=== PATIENT | female | born 1970 | race African-American/Black ===

== ENCOUNTER 2019-06-05 14:00 | Outpatient (RCR) | payer MEDICAID, SELFPAY | END 2019-06-05 23:59 | disposition home or self-care (01) | LOC: ANHAUDIO 14:00 | PROVIDERS: PCP Internal Medicine; Visit Provider Internal Medicine | DX: Z46.1 Encounter for fitting and adjustment of hearing aid (principal) | CPT/HCPCS: V5160; V5261 ==

== ENCOUNTER 2019-10-08 10:12 | Outpatient (RCR) | payer MEDICARE, MEDICAID, SELFPAY | END 2019-10-08 23:59 | disposition home or self-care (01) | LOC: ANHAUDIO 10:12 | PROVIDERS: PCP Internal Medicine; Visit Provider Internal Medicine | DX: Z46.1 Encounter for fitting and adjustment of hearing aid (principal) | CPT/HCPCS: 99199 ==